=== PATIENT | female | born 1990 | race Caucasian/White ===

== ENCOUNTER 2017-01-29 04:55 | Emergency (ER) | payer OTHER ==
[~2017-01-29] VITALS: Ht 157.5 cm; Wt 59.0 kg
[2017-01-29 05:03] VITALS: BP 102/68
--- NOTE | 2017-01-29 05:08 | NUR ---
PATIENT PRESENTS TO ED WITH TONSIL PAIN AND L EAR PAIN X 3 DAYS . PT STATES SHE HAS REOCCURRING TONSILITIS ONCE EVERY 5-6 MONTHS .PT DENIES N/V/D; SKIN IS PINK/WARM/DRY; AAOX4 WITH EVEN AND STEADY GAIT; LUNGS CLEAR BL; HR EVEN AND REGULAR; PT DENIES ANY FEVER, CP, SOB, OR COUGH AT THIS TIME; PATIENT STATES PAIN OF 10/10 AT THIS TIME; VSS; PATIENT POSITIONED FOR COMFORT; HOB ELEVATED; BEDRAILS UP X2; BED DOWN. ER MD MADE AWARE OF PT STATUS.
--- NOTE | 2017-01-29 05:10 | NUR ---
Patient being evaluated by physician DR CROSS at bedside.
[2017-01-29] MEDS ORDERED: KETOROLAC 60 MG/2 ML VIAL IM ONE (05:15)
[2017-01-29] MEDS ORDERED: PENICILLIN G BENZATHINE L-A 1.2 MU/2 ML SYR IM ONE (05:15)
[2017-01-29 05:45] VITALS: BP 119/71
--- NOTE | 2017-01-29 05:45 | NUR ---
Patient discharged with v/s stable. Written and verbal after care instructions given and explained. Patient alert, oriented and verbalized understanding of instructions. Ambulatory with steady gait. All questions addressed prior to discharge. ID band removed. Patient advised to follow up with PMD. Rx of PREDNISONE 20MG, NORCO 5/325, AND MOTRIN 600MG given. Patient educated on indication of medication including possible reaction and side effects. Opportunity to ask questions provided and answered.
== END 2017-01-29 05:45 | disposition home or self-care (01) ==
LOC: MED 04:55
DX: H66.92 Otitis media, unspecified, left ear (principal); J02.0 Streptococcal pharyngitis
CPT/HCPCS: 96372; 99284; J0561; J1885

== ENCOUNTER 2017-09-23 21:37 | Emergency (ER) | payer OTHER ==
[~2017-09-23] VITALS: Ht 157.5 cm; Wt 56.2 kg
--- NOTE | 2017-09-23 21:52 | NUR ---
Pt taken to bed 2.
[2017-09-23 21:53] VITALS: BP 113/75
--- NOTE | 2017-09-23 21:58 | NUR ---
26/F c/o cough x 5 days. Pt describes pain as dry, non productive. Pt also c/o chest pain with cough. Lungs are clear bilaterally. Chest rises and falls symmetrically. AOX4, ambulatory with steady gait. VSS. Denies N/V/D. Denies fever or chills.
--- NOTE | 2017-09-23 22:17 | NUR ---
Patient being evaluated by Dr. Knapp at bedside.
[2017-09-23 22:32] VITALS: BP 113/75
--- NOTE | 2017-09-23 22:32 | NUR ---
Patient discharged with v/s stable. Written and verbal after care instructions given and explained. Patient alert, oriented and verbalized understanding of instructions. Ambulatory with steady gait. All questions addressed prior to discharge. ID band removed. Patient advised to follow up with PMD. Rx of Tessalon Perles 100mg given. Patient educated on indication of medication including possible reaction and side effects. Opportunity to ask questions provided and answered.
== END 2017-09-23 22:32 | disposition home or self-care (01) ==
LOC: MED 21:37
DX: J06.9 Acute upper respiratory infection, unspecified (principal)
CPT/HCPCS: 99283